=== PATIENT | female | born 1965 | race Caucasian/White ===

== ENCOUNTER → 2024-10-14 09:12 | Outpatient (BNVA) | payer OTHER, SELFPAY | PROVIDERS: Visit Provider Internal Medicine | DX: S91.211A Laceration without foreign body of right great toe with damage to nail, initial encounter (principal); W50.1XXA Accidental kick by another person, initial encounter | CPT/HCPCS: 11730; 99203 ==

== ENCOUNTER → 2024-10-17 10:35 | Outpatient (BNVA) | payer OTHER, SELFPAY | PROVIDERS: Visit Provider Internal Medicine | DX: L03.031 Cellulitis of right toe (principal); Z48.02 Encounter for removal of sutures | CPT/HCPCS: 87070; 87077; 87186; 87205; 99215 ==

== ENCOUNTER → 2024-10-19 07:42 | Outpatient (BNVA) | payer OTHER, SELFPAY | PROVIDERS: Visit Provider Internal Medicine | DX: L03.031 Cellulitis of right toe (principal) | CPT/HCPCS: 99213 ==

== ENCOUNTER → 2024-10-21 14:44 | Outpatient (BNVA) | payer OTHER, SELFPAY | PROVIDERS: Visit Provider Physician Assistant | DX: L03.031 Cellulitis of right toe (principal) | CPT/HCPCS: 99213 ==

== ENCOUNTER → 2024-10-26 15:26 | Outpatient (BNVA) | payer OTHER, SELFPAY | PROVIDERS: Visit Provider Physician Assistant | DX: S91.211A Laceration without foreign body of right great toe with damage to nail, initial encounter (principal); W50.1XXA Accidental kick by another person, initial encounter | CPT/HCPCS: 99213 ==

== ENCOUNTER → 2024-11-09 10:50 | Outpatient (BNVA) | payer OTHER, SELFPAY | PROVIDERS: Visit Provider Physician Assistant | DX: S91.211D Laceration without foreign body of right great toe with damage to nail, subsequent encounter (principal); W50.1XXD Accidental kick by another person, subsequent encounter; Z02.79 Encounter for issue of other medical certificate | CPT/HCPCS: 99213 ==